=== PATIENT | male | born 1940 | race Caucasian/White ===

== ENCOUNTER 2022-05-01 09:42 | Day surgery (SDC) | payer MEDICARE ==
[2022-05-01] VITALS (11 sets, daily range): BP systolic 106–135; BP diastolic 56–74
[~2022-05-01] VITALS: Ht 154.9 cm; Wt 66.5 kg
[~2022-05-01 09:42] MED LIST: ASPI-1009 PO; ATOR20TA PO; CALC-964 PO; ENAL20TA75 PO; FOLI-43 PO; HYDR12.522 PO; MULT-1085 PO; PROP425C PO; VITC500T PO
[2022-05-01 10:25] LABS: EOSINOPHILS # (AUTO) 0.1 X10'3 (0-0.9); EOSINOPHILS % (AUTO) 1.7 % (0-6); HEMATOCRIT 42.4 % (42.0-52.0); HEMOGLOBIN 14.1 g/dl (14.0-17.9); LYMPHOCYTES # (AUTO) 0.7 X10'3 (1.1-4.8); LYMPHOCYTES % (AUTO) 16.6 % (21-51); MEAN CORPUSCULAR HEMOGLOBIN 31.2 PG (27.0-31.0); MEAN CORPUSCULAR HGB CONC 33.4 g/dL (33.0-36.5); MEAN CORPUSCULAR VOLUME 93.5 FL (78-98); MEAN PLATELET VOLUME 8.4 FL (7.4-10.4); MONOCYTES # (AUTO) 0.4 X10'3 (0-0.9); MONOCYTES % (AUTO) 8.5 % (2-12); NEUTROPHILS # (AUTO) 3.2 X10'3 (1.8-7.7); NEUTROPHILS % (AUTO) 72.2 % (42-75); PLATELET COUNT 135 X10'3 (140-440); RED BLOOD COUNT 4.53 X10'6 (4.70-6.10); RED CELL DISTRIBUTION WIDTH 13.8 % (11.5-14.5); WHITE BLOOD COUNT 4.4 X10'3 (4.5-11.0)
[2022-05-01 10:36] LABS: ALBUMIN 3.9 G/DL (3.4-5.0); ANION GAP 11 (8-16); BLOOD UREA NITROGEN 23 MG/DL (7-18); BUN/CREATININE RATIO 19.5 (5.4-32.0); CALCIUM 9.1 MG/DL (8.5-10.1); CHLORIDE 107 MMOL/L (99-107); CREATININE 1.18 MG/DL (0.60-1.10); GLUCOSE 114 MG/DL (70-104); POTASSIUM 3.7 MMOL/L (3.5-5.1); SODIUM 143 MMOL/L (135-145); TOTAL CARBON DIOXIDE 24.9 MMOL/L (24-32); eGFR 59 ML/MIN
[2022-05-01 10:40] LABS: APTT 28 SECONDS (22-32)
[2022-05-01] MEDS ORDERED: ceFAZolin inj. 2,000 MG in dextrose 5%-water 100 ML IV ONE (10:54)
[2022-05-01] MEDS ORDERED: normal saline 1000ml 1,000 ML IV SCH (10:54)
--- NOTE | 2022-05-01 11:00 | NUR ---
SANIYA Ocasio assumed care of patient. All questions answered.
[2022-05-01] MEDS ORDERED: ALFU10TA10 PO (11:24)
[2022-05-01] MEDS ORDERED: SELE200C PO (11:24)
[2022-05-01] MEDS ORDERED: METO-384 PO (11:24)
[2022-05-01] MEDS ORDERED: ATOR40TA PO (11:24)
[2022-05-01] MEDS ORDERED: FLUT16SP11 NAS (11:24)
[2022-05-01] MEDS ORDERED: CHOL100017 PO (11:24)
[2022-05-01] MEDS ORDERED: MELA10TA2 PO (11:24)
[2022-05-01] MEDS ORDERED: FAMO20TA8 PO (11:24)
[2022-05-01] MEDS ORDERED: ZINC220T3 PO (11:24)
[2022-05-01] MEDS ORDERED: FURO20TA4 PO (11:24)
[2022-05-01] MEDS ORDERED: LISI10TA27 PO (11:24)
[2022-05-01] MEDS ORDERED: vancomycin 1,000mg inj ONE (11:39)
[2022-05-01] MEDS ORDERED: LIDOcaine 1% W/epiNEPHrine 1:100,000 20ml vial ONE ×2 (11:41→12:31)
[2022-05-01] MEDS ORDERED: fentaNYL/PF 50MCG/1 ML 2ML syringe ONE (11:43)
[2022-05-01] MEDS ORDERED: midazolam 1 mg/ML 2ml injection ONE (11:43)
[2022-05-01] MEDS ORDERED: vancomycin/NS 1 GM ADD-VANTAGE 250 ML IV ONE (14:00)
== END 2022-05-01 17:30 | disposition home or self-care (01) ==
LOC: SSTAY O 09:42
PROVIDERS: ATTEND Internal Medicine Cardiovascular Disease
DX: Z45.010 Encounter for checking and testing of cardiac pacemaker pulse generator [battery] (principal); I48.91 Unspecified atrial fibrillation; I08.3 Combined rheumatic disorders of mitral, aortic and tricuspid valves; I27.22 Pulmonary hypertension due to left heart disease; I10 Essential (primary) hypertension; E78.5 Hyperlipidemia, unspecified; Z98.890 Other specified postprocedural states; I48.0 Paroxysmal atrial fibrillation; G43.909 Migraine, unspecified, not intractable, without status migrainosus; Z79.899 Other long term (current) drug therapy; Z88.8 Allergy status to other drugs, medicaments and biological substances; Z95.5 Presence of coronary angioplasty implant and graft
CPT/HCPCS: 33228; 36415; 80048; 82948; 85025; 85610; 85730; 93005; 99152; 99153; C1785; J3010; J3370; J3490; J7030; A4620; A6258; A6449; J2250